=== PATIENT | female | born 1995 | race Caucasian/White ===

== ENCOUNTER 2021-07-02 18:46 | Emergency (ER) | payer BC ==
[~2021-07-02] VITALS: Ht 168 cm; Wt 85.0 kg
[~2021-07-02 18:46] MED LIST: CEFP500T4 PO; IBP800T PO; METH4TAB PO
[2021-07-02 19:27] LABS: BILIRUBIN,URINE NEGATIVE (NEGATIVE); CLARITY,URINE SL CLOUDY; COLOR,URINE YELLOW; GLUCOSE, URINE (UA) NEGATIVE (NEGATIVE); KETONES,URINE NEGATIVE (NEGATIVE); LEUKOCYTE ESTERASE ,URINE 2+ (NEGATIVE); NITRITE,URINE POSITIVE (NEGATIVE); PROTEIN,URINE NEGATIVE (NEGATIVE)
[2021-07-02] MEDS ORDERED: HYDROcodone/APAP 7.5 MG/325 MG (LORTAB, LORCET PLUS) TABLET PO STA (19:29)
--- NOTE | 2021-07-02 19:32 | ED Abdominal Pain ---
General Chief Complaint: OB < 20 WEEKS Stated Complaint: 8 WKS PREG, VAG BLEEDING, CRAMPS Source of Information: Patient Exam Limitations: No Limitations (LIANG MEJIA) History of Present Illness Date Seen by Provider: Jul 02, 2021 Time Seen by Provider: 19:30 Initial Comments Patient is a 25-year-old female presents ED with lower abdominal pain with vaginal bleeding. She states symptoms started on Friday with lower abdominal cramping. Started having red vaginal bleeding that was intermittent. Bleeding became heavier over the past few days. she Saw her LEASING PROFESSIONAL doctor Rajwinder and had lab work performed that showed concerning for miscarriage. She is unsure what type of lab work was drawn. She denies fever, chest pain, shortness of breath, cough. Patient is and currently 8 weeks . Last menstrual cycle May 02. Denies any urinary symptoms. (LIANG MEJIA) Allergies and Home Medications Allergies Coded Allergies: Penicillins (Verified Allergy, Mild, HIVES, 08/07/11) Patient Home Medication List Home Medication List Reviewed: Yes (LIANG MEJIA) Cephalexin (Cephalexin) 500 Mg Tablet, 500 MG PO BID Prescribed by: ARNOL MILLER on 07/02/212055 Hydrocodone/Acetaminophen (Hydrocodone-Acetamin 5-325 mg) 1 Each Tablet, 1 TAB PO Q4H PRN for PAIN-MODERATE (5-7) Prescribed by: ARNOL MILLER on 07/02/212055 Ibuprofen (Motrin) 800 Mg Tab, 800 MG PO Q8HR PRN Prescribed by: KARLOS OLMEDO on 03/24/121904 Review of Systems Review of Systems Constitutional: No chills, No diaphoresis, No fever, No malaise EENTM: No Blurred Vision, No Double Vision Respiratory: Denies Cough, Denies Orthopnea, Denies SOA With Exertion, Denies SOA at Rest Cardiovascular: Denies Chest Pain Gastrointestinal: Abdominal Pain; Denies Constipated, Denies Diarrhea, Denies Difficulty Swallowing, Denies Rectal Bleeding, Denies Vomiting Genitourinary: Denies Burning, Denies Drainage, Denies Frequency; Other (Vaginal bleeding) Musculoskeletal: No back pain, No joint pain, No muscle pain Skin: No change in color, No change in hair/nails Psychiatric/Neurological: Denies Anxiety, Denies Depressed (LIANG MEJIA) All Other Systems Reviewed Negative Unless Noted: Yes (LIANG MEJIA) Past Zamszpv-Knxpgm-Fxcbzs Hx Patient Social History Tobacco Use?: No Use of E-Cig and/or Vaping dev: No Substance use?: No Alcohol Use?: No Pt feels they are or have been: No (LIANG MEJIA) Immunizations Up To Date Influenza Vaccine Up-to-Date: No; Not Current First/Initial COVID19 Vaccinat: N/A (LIANG MEJIA) Physical Exam Vital Signs Vital Signs - First Documented 07/02/21 19:10 Temp 36.8 Pulse 99 Resp 18 B/P (MAP) 130/85 (100) Pulse Ox 97 O2 Delivery Room Air (KARLOS LOGAN MD) Vital Signs Capillary Refill : (ILANG MEJIA) Height/Weight/BMI Height: '" Weight: lbs. oz. kg; BMI Method:Stated General Appearance: WD/WN, no apparent distress HEENT: PERRL/EOMI, normal ENT inspection, TMs normal, pharynx normal Neck: non-tender, full range of motion, supple, normal inspection Respiratory: chest non-tender, lungs clear, normal breath sounds, no respiratory distress, no accessory muscle use Cardiovascular: regular rate, rhythm, no edema, no gallop, no JVD Gastrointestinal: normal bowel sounds, soft, no organomegaly, no pulsatile mass, tenderness (Lower abdominal tenderness on palpation peer) Genital/Rectal: other (Patient refused exam) Extremities: normal range of motion, non-tender, normal inspection Back: normal inspection, no CVA tenderness, no vertebral tenderness Pelvic: normal external exam, normal adnexa, no cerv. 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 nml as tested, no motor/sensory deficits, alert, normal mood/affect (LIANG MEJIA) Progress/Results/Core Measures Results/Orders Lab Results Laboratory Tests Test 07/02/21 19:20 07/02/21 19:42 Range/Units Urine Color YELLOW Urine Clarity SL CLOUDY Urine pH 6.0 5-9 Urine Specific [place] 1.020 1.016-1.022 Urine Protein NEGATIVE NEGATIVE Urine Glucose (UA) NEGATIVE NEGATIVE Urine Ketones NEGATIVE NEGATIVE Urine Nitrite POSITIVE H NEGATIVE Urine Bilirubin NEGATIVE NEGATIVE Urine Urobilinogen 0.2 < = 1.0 MG/DL Urine Leukocyte Esterase 2+ H NEGATIVE Urine RBC (Auto) 3+ H NEGATIVE Urine RBC >100 H /HPF Urine WBC 10-25 H /HPF Urine Crystals NONE /LPF Urine Bacteria FEW H /HPF Urine Casts NONE /LPF Urine Mucus NEGATIVE /LPF Urine Culture Indicated YES White Blood Count 10.3 4.3-11.0 10^3/uL Red Blood Count 4.44 3.80-5.11 10^6/uL Hemoglobin 13.2 11.5-16.0 g/dL Hematocrit 39 35-52 % Mean Corpuscular Volume 88 80-99 fL Mean Corpuscular Hemoglobin 30 25-34 pg Mean Corpuscular Hemoglobin Concent 34 32-36 g/dL Red Cell Distribution Width 12.3 10.0-14.5 % Platelet Count 204 130-400 10^3/uL Mean Platelet Volume 8.9 L 9.0-12.2 fL Immature Granulocyte % (Auto) 0 % Neutrophils (%) (Auto) 75 42-75 % Lymphocytes (%) (Auto) 15 12-44 % Monocytes (%) (Auto) 8 0-12 % Eosinophils (%) (Auto) 1 0-10 % Basophils (%) (Auto) 0 0-10 % Neutrophils # (Auto) 7.8 1.8-7.8 10^3/uL Lymphocytes # (Auto) 1.6 1.0-4.0 10^3/uL Monocytes # (Auto) 0.9 0.0-1.0 10^3/uL Eosinophils # (Auto) 0.1 0.0-0.3 10^3/uL Basophils # (Auto) 0.0 0.0-0.1 10^3/uL Immature Granulocyte # (Auto) 0.0 0.0-0.1 10^3/uL Sodium Level 140 135-145 MMOL/L Potassium Level 3.7 3.6-5.0 MMOL/L Chloride Level 107 98-107 MMOL/L Carbon Dioxide Level 22 21-32 MMOL/L Anion Gap 11 5-14 MMOL/L Blood Urea Nitrogen 10 7-18 MG/DL Creatinine 0.86 0.60-1.30 MG/DL Estimat Glomerular Filtration Rate 79 BUN/Creatinine Ratio 12 Glucose Level 109 H 70-105 MG/DL Calcium Level 9.2 8.5-10.1 MG/DL Corrected Calcium 9.2 8.5-10.1 MG/DL Total Bilirubin 0.2 0.1-1.0 MG/DL Aspartate Amino Transf (AST/SGOT) 11 5-34 U/L Alanine Aminotransferase (ALT/SGPT) 13 0-55 U/L Alkaline Phosphatase 60 40-136 U/L Total Protein 6.9 6.4-8.2 GM/DL Albumin 4.0 3.2-4.5 GM/DL Human Chorionic Gonadotropin, Quant 2244 H <5 MIU/ML (KARLOS LOGAN MD) My Orders Orders - KARLOS LOGAN MD Cbc With Automated Diff (07/02/21 18:52) Hcg,Quantitative (07/02/21 18:52) Ua Culture If Indicated (07/02/21 18:52) Abo Rh Type (07/02/21 18:52) Urine Culture (07/02/21 19:20) (KARLOS LOGAN MD) Medications Given in ED Current Medications Medications Dose Ordered Sig/Abraham Route Start Time Stop Time Status Last Admin Dose Admin Morphine Sulfate 4 mg ONCE ONCE IM 07/02/21 20:45 07/02/21 21:17 DC 07/02/21 21:01 4 MG (KARLOS LOGAN MD) Vital Signs/I&O 07/02/21 07/02/21 19:10 21:07 Temp 36.8 Pulse 99 92 Resp 18 16 B/P (MAP) 130/85 (100) 127/79 Pulse Ox 97 98 O2 Delivery Room Air Room Air (KARLOS LOGAN MD) Departure Communication (Admissions) Patient currently having a active miscarriage. Patient saw Dr. Purdy her [employer]ING PROFESSIONAL today and states her quant hCG has decreased and having a miscarriage. Patient . Unclear what type of lab work they performed today. Patient Rh+. Beta quant 2244. Refused pelvic exam. She states she has had a vaginal exam performed today. Positive UTI.. She states she had a previous ultrasound. Patient was given oral and IM pain medication with some improvement. Patient with normal hemoglobin. Normal white blood count. She does not appear in acute distress. Patient will be discharged at this time with follow-up with her LEASING PROFESSIONAL. Continue monitoring lab work. Follow-up with Dr. Purdy. Will discharge with pain medication. Patient did not meet criteria for pelvic ultrasound. (LIANG MEJIA) Impression Primary Impression: Vaginal bleeding Disposition: HOME, SELF-CARE Condition: Stable Departure-Patient Inst. Decision time for Depature: 20:54 (LIANG MEJIA) Referrals: [facility] [place] (PCP/Family) Primary Care Physician Patient Instructions: Bleeding In Early Scripts Hydrocodone/Acetaminophen (Hydrocodone-Acetamin 5-325 mg) 1 Each Tablet 1 TAB PO Q4H PRN for PAIN-MODERATE (5-7), #10 TAB Prov: LIANG MEJIA 07/02/21 Cephalexin (Cephalexin) 500 Mg Tablet 500 MG PO BID for 7 Days, #14 TAB Prov: LIANG MEJIA 07/02/21 ATTENDING PHYSICIAN NOTE: I was physically present as attending physician in the emergency department during the care of this patient. I placed initial orders after reviewing chief complaint, but I was not otherwise directly involved in the decision making or delivery of care for this patient. (KARLOS LOGAN MD) LIANG MEJIA Jul 02, 2021 19:32 KARLOS LOGAN MD Jul 03, 2021 07:47
[2021-07-02 19:51] LABS: RBC,URINE >100 /HPF
[2021-07-02 19:52] LABS: BASOPHILS % (AUTO) 0 % (0-10); EOSINOPHILS # (AUTO) 0.1 10^3/uL (0.0-0.3); EOSINOPHILS % (AUTO) 1 % (0-10); HEMATOCRIT 39 % (35-52); HEMOGLOBIN 13.2 g/dL (11.5-16.0); LYMPHOCYTES # (AUTO) 1.6 10^3/uL (1.0-4.0); LYMPHOCYTES % (AUTO) 15 % (12-44); MEAN CORPUSCULAR HEMOGLOBIN 30 pg (25-34); MEAN CORPUSCULAR HGB CONC 34 g/dL (32-36); MEAN CORPUSCULAR VOLUME 88 fL (80-99); MEAN PLATELET VOLUME 8.9 fL (9.0-12.2); MONOCYTES # (AUTO) 0.9 10^3/uL (0.0-1.0); MONOCYTES % (AUTO) 8 % (0-12); NEUTROPHILS # (AUTO) 7.8 10^3/uL (1.8-7.8); NEUTROPHILS % (AUTO) 75 % (42-75); PLATELET COUNT 204 10^3/uL (130-400); WHITE BLOOD COUNT 10.3 10^3/uL (4.3-11.0)
[2021-07-02 19:53] LABS: BACTERIA,URINE FEW /HPF
[2021-07-02 20:06] LABS: BILIRUBIN,TOTAL 0.2 MG/DL (0.1-1.0); CALCIUM 9.2 MG/DL (8.5-10.1); CREATININE SERUM 0.86 MG/DL (0.60-1.30); POTASSIUM 3.7 MMOL/L (3.6-5.0); TOTAL PROTEIN 6.9 GM/DL (6.4-8.2)
[2021-07-02] MEDS ORDERED: CEPHALEXIN 250 MG (KEFLEX) CAP PO STA (20:33)
[2021-07-02] MEDS ORDERED: morphine INJ 10 MG/ML 1ML (SYR OR VIAL) IM ONE (20:45)
[2021-07-02] MEDS ORDERED: CEPHALEXIN 250 MG (KEFLEX) CAP PO ONE (20:54)
[2021-07-02] MEDS ORDERED: morphine INJ 10 MG/ML 1ML (SYR OR VIAL) ONE (20:55)
[2021-07-02] MEDS ORDERED: ACHD5005 PO (20:56)
[2021-07-02] MEDS ORDERED: CEPH500T PO (20:56)
[2021-07-02 21:07] VITALS: BP 127/79
== END 2021-07-02 21:17 | disposition home or self-care (01) ==
LOC: EDUNIT# 18:46 → ER 18:50
DX: O03.9 Complete or unspecified spontaneous abortion without complication (principal); N39.0 Urinary tract infection, site not specified; Z67.90 Unspecified blood type, Rh positive; Z88.0 Allergy status to penicillin
CPT/HCPCS: 36415; 80053; 81000; 84702; 85025; 86900; 86901; 87077; 87088; 87186

== ENCOUNTER 2022-04-26 20:32 | Emergency (ER) | payer BC ==
[~2022-04-26] VITALS: Ht 167.7 cm; Wt 87.5 kg
[~2022-04-26 20:32] MED LIST changes: +ACHD5005 PO; +CEPH500T PO
[2022-04-26 20:57] LABS: BASOPHILS % (AUTO) 0 % (0-10); EOSINOPHILS % (AUTO) 0 % (0-10); HEMATOCRIT 33 % (35-52); HEMOGLOBIN 11.2 g/dL (11.5-16.0); LYMPHOCYTES # (AUTO) 1.6 10^3/uL (1.0-4.0); LYMPHOCYTES % (AUTO) 18 % (12-44); MEAN CORPUSCULAR HEMOGLOBIN 31 pg (25-34); MEAN CORPUSCULAR HGB CONC 34 g/dL (32-36); MEAN CORPUSCULAR VOLUME 91 fL (80-99); MEAN PLATELET VOLUME 9.4 fL (9.0-12.2); MONOCYTES # (AUTO) 0.7 10^3/uL (0.0-1.0); MONOCYTES % (AUTO) 8 % (0-12); NEUTROPHILS # (AUTO) 6.4 10^3/uL (1.8-7.8); NEUTROPHILS % (AUTO) 73 % (42-75); PLATELET COUNT 178 10^3/uL (130-400); WHITE BLOOD COUNT 8.8 10^3/uL (4.3-11.0)
[2022-04-26 21:06] LABS: BILIRUBIN,URINE NEGATIVE (NEGATIVE); CLARITY,URINE CLOUDY; COLOR,URINE YELLOW; GLUCOSE, URINE (UA) NEGATIVE (NEGATIVE); KETONES,URINE NEGATIVE (NEGATIVE); LEUKOCYTE ESTERASE ,URINE 2+ (NEGATIVE); NITRITE,URINE NEGATIVE (NEGATIVE); PROTEIN,URINE NEGATIVE (NEGATIVE)
[2022-04-26 21:16] LABS: ALBUMIN 2.9 GM/DL (3.2-4.5); BILIRUBIN,TOTAL 0.2 MG/DL (0.1-1.0); CALCIUM 9.1 MG/DL (8.5-10.1); CREATININE SERUM 0.75 MG/DL (0.60-1.30); MAGNESIUM 1.6 MG/DL (1.6-2.4); POTASSIUM 3.7 MMOL/L (3.6-5.0); TOTAL PROTEIN 6.3 GM/DL (6.4-8.2)
[2022-04-26 21:28] LABS: BACTERIA,URINE LARGE /HPF
[2022-04-26] MEDS ORDERED: CEFDINIR 300 MG (OMNICEF) CAP PO ONE (21:45)
[2022-04-26] MEDS ORDERED: CEFD300C3 PO (21:50)
--- NOTE | 2022-04-26 21:50 | ED General ---
General Chief Complaint: OB > 20 WEEKS Stated Complaint: PAIN/SWELLING IN LEGS,38 WKS Nursing Triage Note: PT AMB TO ED BY POV WITH C/O BILAT LEG PAIN/ SWELLING SINCE LAST NIGHT. PT IS 37 WK 5 DAYS . Allergies and Home Medications Allergies Coded Allergies: Penicillins (Verified Allergy, Mild, HIVES, 08/07/11) Patient Home Medication List Cephalexin (Cephalexin) 500 Mg Tablet, 500 MG PO BID Prescribed by: ARNOL MILLER on 07/02/212055 Hydrocodone/Acetaminophen (Hydrocodone-Acetamin 5-325 mg) 1 Each Tablet, 1 TAB PO Q4H PRN for PAIN-MODERATE (5-7) Prescribed by: ARNOL MILLER on 07/02/212055 Ibuprofen (Motrin) 800 Mg Tab, 800 MG PO Q8HR PRN Prescribed by: KARLOS OLMEDO on 03/24/121904 Review of Systems Review of Systems Expected Date of Delivery: May 12, 2022 Past Ggzauft-Ogpyyh-Gwgiuu Hx Patient Social History Tobacco Use?: No Use of E-Cig and/or Vaping dev: No Substance use?: No Alcohol Use?: No Pt feels they are or have been: No Immunizations Up To Date Influenza Vaccine Up-to-Date: No; Not Current First/Initial COVID19 Vaccinat: N/A Past Medical History Surgery/Hospitalization HX: ANEMIA, DEPRESSION Expected Date of Delivery: May 12, 2022 Physical Exam Vital Signs Vital Signs - First Documented 04/26/22 20:35 Temp 36.5 Pulse 77 Resp 18 B/P (MAP) 133/91 (105) Pulse Ox 98 O2 Delivery Room Air Capillary Refill : Less Than 3 Seconds Height, Weight, BMI Height: '" Weight: lbs. oz. kg; 31.00 BMI Method:Stated Progress/Results/Core Measures Suspected Sepsis SIRS Temperature: Pulse: 77 Respiratory Rate: 18 Laboratory Tests 04/26/22 20:47: White Blood Count 8.8 Blood Pressure 133 /91 Mean: 105 Laboratory Tests 04/26/22 20:47: Creatinine 0.75, Platelet Count 178, Total Bilirubin 0.2 Results/Orders Lab Results Laboratory Tests Test 04/26/22 20:47 04/26/22 21:01 Range/Units White Blood Count 8.8 4.3-11.0 10^3/uL Red Blood Count 3.62 L 3.80-5.11 10^6/uL Hemoglobin 11.2 L 11.5-16.0 g/dL Hematocrit 33 L 35-52 % Mean Corpuscular Volume 91 80-99 fL Mean Corpuscular Hemoglobin 31 25-34 pg Mean Corpuscular Hemoglobin Concent 34 32-36 g/dL Red Cell Distribution Width 13.6 10.0-14.5 % Platelet Count 178 130-400 10^3/uL Mean Platelet Volume 9.4 9.0-12.2 fL Immature Granulocyte % (Auto) 1 % Neutrophils (%) (Auto) 73 42-75 % Lymphocytes (%) (Auto) 18 12-44 % Monocytes (%) (Auto) 8 0-12 % Eosinophils (%) (Auto) 0 0-10 % Basophils (%) (Auto) 0 0-10 % Neutrophils # (Auto) 6.4 1.8-7.8 10^3/uL Lymphocytes # (Auto) 1.6 1.0-4.0 10^3/uL Monocytes # (Auto) 0.7 0.0-1.0 10^3/uL Eosinophils # (Auto) 0.0 0.0-0.3 10^3/uL Basophils # (Auto) 0.0 0.0-0.1 10^3/uL Immature Granulocyte # (Auto) 0.1 0.0-0.1 10^3/uL Sodium Level 138 135-145 MMOL/L Potassium Level 3.7 3.6-5.0 MMOL/L Chloride Level 108 H 98-107 MMOL/L Carbon Dioxide Level 18 L 21-32 MMOL/L Anion Gap 12 5-14 MMOL/L Blood Urea Nitrogen 11 7-18 MG/DL Creatinine 0.75 0.60-1.30 MG/DL Estimat Glomerular Filtration Rate 111 BUN/Creatinine Ratio 15 Glucose Level 99 70-105 MG/DL Calcium Level 9.1 8.5-10.1 MG/DL Corrected Calcium 10.0 8.5-10.1 MG/DL Magnesium Level 1.6 1.6-2.4 MG/DL Total Bilirubin 0.2 0.1-1.0 MG/DL Aspartate Amino Transf (AST/SGOT) 17 5-34 U/L Alanine Aminotransferase (ALT/SGPT) 14 0-55 U/L Alkaline Phosphatase 155 H 40-136 U/L B-Type Natriuretic Peptide 52.3 <100.0 PG/ML Total Protein 6.3 L 6.4-8.2 GM/DL Albumin 2.9 L 3.2-4.5 GM/DL Urine Color YELLOW Urine Clarity CLOUDY Urine pH 6.0 5-9 Urine Specific [place] 1.025 H 1.016-1.022 Urine Protein 33 H 6-12 MG/DL Urine Glucose (UA) NEGATIVE NEGATIVE Urine Ketones NEGATIVE NEGATIVE Urine Nitrite NEGATIVE NEGATIVE Urine Bilirubin NEGATIVE NEGATIVE Urine Urobilinogen 0.2 < = 1.0 MG/DL Urine Leukocyte Esterase 2+ H NEGATIVE Urine RBC (Auto) NEGATIVE NEGATIVE Urine RBC NONE /HPF Urine WBC 10-25 H /HPF Urine Squamous Epithelial Cells 2-5 /HPF Urine Crystals NONE /LPF Urine Bacteria LARGE H /HPF Urine Casts NONE /LPF Urine Mucus NEGATIVE /LPF Urine Culture Indicated YES Urine Creatinine 103 30-125 MG/DL Urine Protein/Creatinine Ratio 0.32 My Orders Orders - JOSETTE KRAUSE DO Ed Iv/Invasive Line Start (04/26/22 20:38) Monitor-Rhythm Ecg Trace Only (04/26/22 20:38) Bnp Mayuri (04/26/22 20:38) Cbc With Automated Diff (04/26/22 20:38) Comprehensive Metabolic Panel (04/26/22 20:38) Magnesium (04/26/22 20:38) Ekg Tracing (04/26/22 20:38) Ua Culture If Indicated (04/26/22 20:38) Urine [place] Prot Creat W/Ratio (04/26/22 20:41) Heart Tones (04/26/22 20:41) Urine Culture (04/26/22 21:01) Vital Signs/I&O 04/26/22 20:35 Temp 36.5 Pulse 77 Resp 18 B/P (MAP) 133/91 (105) Pulse Ox 98 O2 Delivery Room Air Capillary Refill : Less Than 3 Seconds Blood Pressure Mean: 105 Departure Impression Primary Impression: 38 weeks gestation of Additional Impressions: Edema of both lower legs UTI (urinary tract infection) in in third trimester Disposition: 01 HOME, SELF-CARE Condition: Stable Departure-Patient Inst. Decision time for Depature: 21:45 Referrals: DMITRY WILLIAM MD (PCP/Family) Primary Care Physician Patient Instructions: Dependent Edema (DC), Urinary Tract Infections in Add. Discharge Instructions: HOME, REST ELEVATE LEGS MUCH POSSIBLE LOW SODIUM DIET--LESS THAN 2 GRAMS/2000 MG A DAY TYLENOL NEEDED FOR PAIN INCREASE YOUR WATER INTAKE FOLLOW UP WITH DR. WILLIAM ON FRIDAY--CALL IN THE MORNING TO SCHEDULE APPOINTMENT RETURN TO ER IF SYMPTOMS WORSEN All discharge instructions reviewed with patient and/or family. Voiced understanding. Scripts Cefdinir (Cefdinir) 300 Mg Capsule 300 MG PO BID, #20 CAP Prov: JOSETTE KRAUSE DO 04/26/22 JOSETTE KRAUSE DO Apr 26, 2022 21:50
[2022-04-26 22:01] VITALS: BP 114/65
== END 2022-04-26 22:00 | disposition home or self-care (01) ==
LOC: EDUNIT# 20:32 → ER 20:33
DX: O26.893 Other specified pregnancy related conditions, third trimester (principal); O23.43 Unspecified infection of urinary tract in pregnancy, third trimester; R60.0 Localized edema; N39.0 Urinary tract infection, site not specified; Z28.310 Unvaccinated for COVID-19; Z88.0 Allergy status to penicillin; Z3A.38 38 weeks gestation of pregnancy
CPT/HCPCS: 36415; 80053; 81000; 82570; 83735; 83880; 84156; 85025; 87077; 87088; 87186; 93005; 93041

== ENCOUNTER 2022-05-10 06:30 | Inpatient (IN) | payer BC ==
[~2022-05-10] VITALS: Ht 167.7 cm; Wt 92.1 kg
[~2022-05-10 06:30] MED LIST changes: +CEFD300C3 PO
[2022-05-14 19:20] VITALS: BP 140/84
[2022-05-14] MEDS ORDERED: LACTATED RINGERS 1,000 ML IV SCH (19:30)
[2022-05-14] MEDS ORDERED: TERBUTALINE INJ 1 MG/ML (BRETHINE) AMP SC PRN (19:30)
[2022-05-14] MEDS ORDERED: MINERAL OIL 30 ML UDC TOP PRN (19:30)
[2022-05-14 19:35] VITALS: BP 140/84
[2022-05-14 20:14] LABS: BASOPHILS % (AUTO) 0 % (0-10); EOSINOPHILS % (AUTO) 0 % (0-10); HEMATOCRIT 35 % (35-52); HEMOGLOBIN 12.2 g/dL (11.5-16.0); LYMPHOCYTES # (AUTO) 1.6 10^3/uL (1.0-4.0); LYMPHOCYTES % (AUTO) 15 % (12-44); MEAN CORPUSCULAR HEMOGLOBIN 31 pg (25-34); MEAN CORPUSCULAR HGB CONC 35 g/dL (32-36); MEAN CORPUSCULAR VOLUME 88 fL (80-99); MEAN PLATELET VOLUME 9.3 fL (9.0-12.2); MONOCYTES # (AUTO) 0.8 10^3/uL (0.0-1.0); MONOCYTES % (AUTO) 8 % (0-12); NEUTROPHILS % (AUTO) 76 % (42-75); PLATELET COUNT 180 10^3/uL (130-400); WHITE BLOOD COUNT 10.5 10^3/uL (4.3-11.0)
[2022-05-14 20:15] LABS: BILIRUBIN,URINE NEGATIVE (NEGATIVE); CLARITY,URINE CLEAR; COLOR,URINE YELLOW; GLUCOSE, URINE (UA) NEGATIVE (NEGATIVE); KETONES,URINE NEGATIVE (NEGATIVE); LEUKOCYTE ESTERASE ,URINE 1+ (NEGATIVE); NITRITE,URINE POSITIVE (NEGATIVE); PROTEIN,URINE NEGATIVE (NEGATIVE)
[2022-05-14 20:22] LABS: BACTERIA,URINE LARGE /HPF; SQUAMOUS EPITHELIAL CELL,UR 0-2 /HPF
[2022-05-14 21:10] VITALS: BP 127/81
[2022-05-14] MEDS ORDERED: CATHETER FLUSH 10 ML SYR IV SCH (22:00)
[2022-05-14 23:45] VITALS: BP 137/88
[2022-05-15] VITALS (34 sets, daily range): BP systolic 105–175; BP diastolic 60–106
[2022-05-15] MEDS: D5 LR IV SOLUTION 1,000 ML IV SCH ×2 (02:31→11:14)
[2022-05-15] MEDS ORDERED: OXYTOCIN PRE-MIX DRIP 500 ML IV SCH (06:00)
[2022-05-15] MEDS ORDERED: DOCU100C37 PO (07:30)
[2022-05-15] MEDS ORDERED: FERR325T18 PO (07:30)
[2022-05-15] MEDS ORDERED: PNV11TAB5 PO (07:30)
[2022-05-15] MEDS ORDERED: CITA20TA12 PO (07:30)
--- NOTE | 2022-05-15 09:38 | History & Physical-OB ---
OB - Chief Complaint & HPI Date/Time Date of Admission: Date of Admission: May 14, 2022 at 18:03 Date seen by a Provider: May 15, 2022 Time Seen by a Provider: 09:00 Chief Complaint/History OB-Reason for Admission/Chief: Induction of Labor Hx : 3 Hx Para: 1 Expected Date of Delivery: May 12, 2022 Gestational Age in Weeks: 40 Gestational Age in Days: 3 Indication for induction: post dates History of Labs O+, Ab neg, Rub Imm HIV/RPR/HepB/C NR Normal 1 hr GTT GBS neg Allergies and Home Medications Allergies Coded Allergies: Penicillins (Verified Allergy, Mild, HIVES, pt has rec Rocephin in the past, 05/15/22) Patient Home Medication List Home Medication List Reviewed: Yes Citalopram Hydrobromide (Celexa) 20 Mg Tablet, 20 MG PO DAILY, (Reported) Entered as Reported by: RICHARD LOPEZ on 05/15/22729 Last Action: New Order Docusate Sodium (Docusate Sodium) 100 Mg Capsule, 100 MG PO DAILY, (Reported) Entered as Reported by: RICHARD LOPEZ on 05/15/22729 Last Action: New Order Ferrous Sulfate (Ferrous Sulfate) 325 Mg (65 Mg Iron) Tablet, 325 MG PO DAILY, (Reported) Entered as Reported by: RICHARD LOPEZ on 05/15/22729 Last Action: New Order Glk477/FA/Omega3/Dha/Fish Oil ( Gummies) 400 Mcg-32.5 Mg (25 Mg-7.5 Mg) Tab.chew, 1 EACH PO DAILY, (Reported) Entered as Reported by: RICHARD LOPEZ on 05/15/22729 Last Action: New Order OB - History Hx of Present Care: Yes Ultrasounds: Normal mid trimester US Obstetrical Complications: None Medical Complications: None Obstetrical History Hx : 3 Hx Para: 1 Hx # Term Pregnancies: 1 Number of Living Children: 1 Hx Total # of Abortions (Spona: 1 Patient Past Medical History None Social History/Family History Alcohol Use: Denies Use Recreational Drug Use: No Smoking Cessation: Never smoker Immunizations Influenza Vaccine Up-to-Date: No; Not Current First/Initial COVID19 Vaccine: N/A Tetanus Booster (TDap): Less than 5yrs Rubella: immune RPR/VDRL: Negative GBS Status: Negative HBsAG: Negative OB - Admission Exam Physical Exam Vitals: Vital Signs 05/14/22 05/14/22 05/15/22 05/15/22 19:20 19:35 09:00 09:15 Temp 36.2 Pulse 67 Resp 20 B/P (MAP) 141/83 (102) Pulse Ox 98 O2 Delivery Room Air HEENT: NCAT Heart: Rhythm Normal Lungs: Clear Abdomen: Gravid Cervical Dilatation: 4cm Effacement: 100% Station: -2 Membranes: Intact Heart Rate: 130's Accelerations: Accelerations Present Decelerations: No Decelerations Wood Router Hand Variability: Average (6-25) Contractions on Admission: < 5 Minutes Apart Intensity: Firm Labs Laboratory Tests Test 05/14/22 19:50 Range/Units White Blood Count 10.5 4.3-11.0 10^3/uL Red Blood Count 3.98 3.80-5.11 10^6/uL Hemoglobin 12.2 11.5-16.0 g/dL Hematocrit 35 35-52 % Mean Corpuscular Volume 88 80-99 fL Mean Corpuscular Hemoglobin 31 25-34 pg Mean Corpuscular Hemoglobin Concent 35 32-36 g/dL Red Cell Distribution Width 13.4 10.0-14.5 % Platelet Count 180 130-400 10^3/uL Mean Platelet Volume 9.3 9.0-12.2 fL Immature Granulocyte % (Auto) 1 % Neutrophils (%) (Auto) 76 H 42-75 % Lymphocytes (%) (Auto) 15 12-44 % Monocytes (%) (Auto) 8 0-12 % Eosinophils (%) (Auto) 0 0-10 % Basophils (%) (Auto) 0 0-10 % Neutrophils # (Auto) 8.0 H 1.8-7.8 10^3/uL Lymphocytes # (Auto) 1.6 1.0-4.0 10^3/uL Monocytes # (Auto) 0.8 0.0-1.0 10^3/uL Eosinophils # (Auto) 0.0 0.0-0.3 10^3/uL Basophils # (Auto) 0.0 0.0-0.1 10^3/uL Immature Granulocyte # (Auto) 0.1 0.0-0.1 10^3/uL Urine Color YELLOW Urine Clarity CLEAR Urine pH 6.0 5-9 Urine Specific [place] 1.015 L 1.016-1.022 Urine Protein NEGATIVE NEGATIVE Urine Glucose (UA) NEGATIVE NEGATIVE Urine Ketones NEGATIVE NEGATIVE Urine Nitrite POSITIVE H NEGATIVE Urine Bilirubin NEGATIVE NEGATIVE Urine Urobilinogen 0.2 < = 1.0 MG/DL Urine Leukocyte Esterase 1+ H NEGATIVE Urine RBC (Auto) NEGATIVE NEGATIVE Urine RBC NONE /HPF Urine WBC 10-25 H /HPF Urine Squamous Epithelial Cells 0-2 /HPF Urine Renal Epithelial Cells NONE /HPF Urine Crystals NONE /LPF Urine Bacteria LARGE H /HPF Urine Casts NONE /LPF Urine Mucus NEGATIVE /LPF Urine Culture Indicated YES OB - Assessment/Plan/Diagnosis Assessment Assessment: active labor Admission Dx Third Trimester 40 week gestation Admission Status: Inpatient Order (span 2 midnights) Reason for Inpatient Admission: Labor Plan Other Plan 26 yo @ 40.2 wga here for IOL that was found to be in active labor Plan - Expectant management - Wishes to have natural delivery - GBS neg DMITRY WILLIAM MD May 15, 2022 09:38
[2022-05-15] MEDS: cefTRIAXone 1 GM PRE-MIX 50 ML IV SCH (09:55)
[2022-05-15] MEDS ORDERED: LIDOCAINE 1% INJ 20 ML VIAL ONE (12:21)
[2022-05-15] MEDS: OXYTOCIN PRE-MIX DRIP 500 ML IV SCH ×2 (12:45→13:22)
[2022-05-15] MEDS ORDERED: MEASLES,MUMPS,RUBELLA 1 EA INJ SQ ONE (13:00)
[2022-05-15] MEDS ORDERED: TETANUS,DIPTH,PERTUSS P/F (BOOSTRIX) 0.5 ML VIAL IM ONE (13:00)
[2022-05-15] MEDS ORDERED: BENZOCAINE/MENTHOL (DERMOPLAST) 56 ML CAN TP PRN (13:00)
[2022-05-15] MEDS: ACETAMINOPHEN 500 MG TAB (TYLENOL) PO SCH ×2 (13:18→18:30)
[2022-05-15] MEDS: IBUPROFEN 600 MG (MOTRIN) TAB PO SCH ×2 (13:18→18:30)
[2022-05-15] MEDS ORDERED: CATHETER FLUSH 10 ML SYR IV SCH (14:00)
--- NOTE | 2022-05-15 14:22 | OB Labor & Delivery Record ---
Vag Delivery Note Vag Delivery Note Date of Delivery: 05/15/22 Preoperative Diagnosis: Judy Corado is a (26 /Para / ,Gestational Age (wks)40.3 here for IOL that was found to be in active labor upon arrival Postoperative Diagnosis: Same Surgeon: DMITRY WILLIAM MD Family Life Counselor: None Anesthesia: Natural Delivery Type: @ 1219 Findings: Viable female , apgars 9/9, weight 8#12, 3937 grams Lacerations: 2nd degree perineal Intact placenta with 3 vessel cord delivered @ 1222 Cytotec 800 mcg placed for hemorrhage prophylaxis True knot present Nuchal cord x1 Estimated Blood Loss: 250 ml Complications: None Condition: Stable Description of Procedure: The patient is a 26 year old female who presented in active labor. She was admitted and informed consent was obtained. Her labor course was remarkable for pitocin augmentation. She progressed to complete dilatation and began to push. She was then set up for delivery. The 's head was delivered atraumatically in the ADILSON position. The shoulders and remainder of the 's body were then delivered without difficulty. Vigorous at delivery. Upon delivery, the head was held below the level of the perineum and the mouth and nares were bulb suctioned. The cord was doubly clamped and cut by FOB after 2 min delay and the was attended to by pediatric staff on maternal abdomen. An intact placenta with 3-vessel cord delivered via [place] and there was found to be minimal bleeding @ 1222.~ Vigorous fundal massage was performed and the fundus was found to be firm. IV oxytocin was given. Examination of the vagina and perineum revealed a 2nd degree laceration repaired in the usual fashion with 3-0 vicryl suture. Following the repair, sponge, instrument and needle counts were correct. Mom and baby were both in stable condition in the labor suite. Vitals - Labs Vital Signs - I&O Vital Signs Date Time Temp Pulse Resp B/P (MAP) Pulse Ox O2 Delivery O2 Flow Rate FiO2 05/15/22 13:01 99 155/91 (112) 05/15/22 12:45 102 123/71 (88) 05/15/22 12:30 89 141/73 (95) 05/15/22 12:15 150 175/81 (112) 05/15/22 12:00 101 155/106 (122) 05/15/22 11:45 84 135/101 (112) 05/15/22 11:30 71 131/89 (103) 05/15/22 11:15 36.3 78 135/88 (104) 05/15/22 11:00 82 133/90 (104) 05/15/22 10:45 71 139/85 (103) 05/15/22 10:30 67 120/78 (92) 05/15/22 10:15 73 124/85 (98) 05/15/22 10:00 75 122/81 (95) 05/15/22 09:45 79 123/81 (95) 05/15/22 09:30 78 127/81 (96) 05/15/22 09:15 67 141/83 (102) 05/15/22 09:00 36.2 77 20 117/75 (89) 05/15/22 08:45 64 122/78 (93) 05/15/22 08:30 82 127/80 (96) 05/15/22 08:15 59 117/74 (88) 05/15/22 08:00 71 106/68 (81) 05/15/22 07:45 65 108/62 (77) 05/15/22 07:30 71 116/64 (81) 05/15/22 07:15 71 106/65 (79) 05/15/22 07:00 65 18 105/64 (78) 05/15/22 06:45 64 18 122/77 (92) 05/15/22 06:30 77 18 152/89 (110) 05/15/22 06:15 36.4 88 18 139/91 (107) 05/15/22 06:00 05/15/22 05:00 05/15/22 04:00 05/15/22 03:00 05/15/22 01:55 05/14/22 23:45 69 18 137/88 (104) 05/14/22 21:10 73 18 127/81 (96) 05/14/22 19:35 36.6 91 18 140/84 (102) 98 05/14/22 19:20 36.6 91 18 98 Room Air I & O 05/15/22 06:59 Intake Total 1000 ml Balance 1000 ml Labs Laboratory Tests 05/14/22 19:50: White Blood Count 10.5, Red Blood Count 3.98, Hemoglobin 12.2, Hematocrit 35, Mean Corpuscular Volume 88, Mean Corpuscular Hemoglobin 31, Mean Corpuscular Hemoglobin Concent 35, Red Cell Distribution Width 13.4, Platelet Count 180, Mean Platelet Volume 9.3, Immature Granulocyte % (Auto) 1, Neutrophils (%) (Auto) 76H, Lymphocytes (%) (Auto) 15, Monocytes (%) (Auto) 8, Eosinophils (%) (Auto) 0, Basophils (%) (Auto) 0, Neutrophils # (Auto) 8.0H, Lymphocytes # (Auto) 1.6, Monocytes # (Auto) 0.8, Eosinophils # (Auto) 0.0, Basophils # (Auto) 0.0, Immature Granulocyte # (Auto) 0.1, Urine Color YELLOW, Urine Clarity CLEAR, Urine pH 6.0, Urine Specific [place] 1.015L, Urine Protein NEGATIVE, Urine Glucose (UA) NEGATIVE, Urine Ketones NEGATIVE, Urine Nitrite POSITIVEH, Urine Bilirubin NEGATIVE, Urine Urobilinogen 0.2, Urine Leukocyte Esterase 1+H, Urine RBC (Auto) NEGATIVE, Urine RBC NONE, Urine WBC 10-25H, Urine Squamous Epithelial Cells 0-2, Urine Renal Epithelial Cells NONE, Urine Crystals NONE, Urine Bacteria LARGEH, Urine Casts NONE, Urine Mucus NEGATIVE, Urine Culture Indicated YES Microbiology 05/14/22 Urine Culture - Preliminary, Resulted Gram Negative DMITRY Soriano MD May 15, 2022 14:22
[2022-05-15] MEDS: WITCH HAZEL(TUCKS) 40 EA JAR TOP PRN (15:06)
[2022-05-15] MEDS ORDERED: DOCUSATE SODIUM 100 MG (COLACE) CAP PO SCH (21:00)
[2022-05-16] MEDS: IBUPROFEN 600 MG (MOTRIN) TAB PO SCH ×2 (00:11→06:02)
[2022-05-16] MEDS: ACETAMINOPHEN 500 MG TAB (TYLENOL) PO SCH ×2 (00:11→06:03)
[2022-05-16 04:30] VITALS: BP 134/75
[2022-05-16 06:21] LABS: BASOPHILS % (AUTO) 0 % (0-10); EOSINOPHILS % (AUTO) 0 % (0-10); HEMATOCRIT 29 % (35-52); HEMOGLOBIN 9.5 g/dL (11.5-16.0); LYMPHOCYTES # (AUTO) 1.5 10^3/uL (1.0-4.0); LYMPHOCYTES % (AUTO) 16 % (12-44); MEAN CORPUSCULAR HEMOGLOBIN 31 pg (25-34); MEAN CORPUSCULAR HGB CONC 33 g/dL (32-36); MEAN CORPUSCULAR VOLUME 92 fL (80-99); MEAN PLATELET VOLUME 9.2 fL (9.0-12.2); MONOCYTES # (AUTO) 0.7 10^3/uL (0.0-1.0); MONOCYTES % (AUTO) 7 % (0-12); NEUTROPHILS # (AUTO) 7.1 10^3/uL (1.8-7.8); NEUTROPHILS % (AUTO) 76 % (42-75); PLATELET COUNT 160 10^3/uL (130-400); WHITE BLOOD COUNT 9.4 10^3/uL (4.3-11.0)
[2022-05-16 10:03] VITALS: BP 120/69
[2022-05-16] MEDS: cefTRIAXone 1 GM PRE-MIX 50 ML IV SCH (10:03)
[2022-05-16] MEDS: WITCH HAZEL(TUCKS) 40 EA JAR TOP PRN (10:14)
--- NOTE | 2022-05-16 12:38 | Discharge Summary ---
Diagnosis/Chief Complaint Date of Admission May 14, 2022 at 18:03 Date of Discharge 05/16/22 Admission Diagnosis Admission Diagnosis Third Trimester 40 weeks gestation Discharge Diagnosis Uncomplicated 40 completed weeks gestation Anemia of acute blood loss Discharge Summary-Simple/Stand Procedures Uncomplicated Discharge Physical Examination Allergies: Coded Allergies: Penicillins (Verified Allergy, Mild, HIVES, pt has rec Rocephin in the past, 05/15/22) Vitals & I&Os Vital Sign - Last 12Hours Date Time Temp Pulse Resp B/P (MAP) Pulse Ox O2 Delivery O2 Flow Rate FiO2 05/16/22 10:03 36.3 110 18 120/69 (86) 98 Room Air Intake and Output 05/16/22 00:00 Intake Total 2300 ml Balance 2300 ml General Appearance: Alert, Oriented X3, No Acute Distress HEENT: Mucous Memb Moist/Atlas Respiratory: Clear to Auscultation, Normal Air Movement Cardiovascular: Regular Rate, No Murmurs Abdominal: Normal Bowel Sounds, Soft, No Tenderness, Other (Fundus firm and below umbilicus) Extremities: No Edema, No Tenderness/Swelling Skin: No Rashes Neuro: Normal Speech, Strength at 5/5 X4 Ext, Sensation Intact, Cranial Nerves 3-12 NL Psych/Mental Status: Mental Status NL, Mood NL Hospital Course See final discharge diagnosis. Discussion & Recommendations Uncomplicated of female @ 40 weeks gestation. 2nd degree perineal laceration Discharge Condition at discharge stable Instructions to patient/family Please see electronic discharge instructions given to patient. Discharge Medications Reviewed and agree with Discharge Medication list on patient's Discharge Instruction sheet DMITRY WILLIAM MD May 16, 2022 12:37
[2022-05-16] MEDS ORDERED: CEFD300C3 PO (12:40)
[2022-05-16] MEDS ORDERED: DOCU100C37 PO (12:40)
[2022-05-16] MEDS ORDERED: IBUP-844 PO (12:40)
--- NOTE | 2022-05-16 12:41 | Discharge Summary ---
Discharge Inst-[facility] Reconcile Patient Problems Problems Reviewed?: Yes Depart Medications New, Converted or Re-Newed RX: Transmitted to Pharmacy New Medications: Cefdinir (Cefdinir) 300 Mg Capsule 300 MG PO BID, #2 CAP Docusate Sodium (Docusate Sodium) 100 Mg Capsule 100 MG PO BID, #14 CAP Ibuprofen (Ibu) 600 Mg Tablet 600 MG PO Q6H, #60 TAB Continued Medications: Citalopram Hydrobromide (Celexa) 20 Mg Tablet 20 MG PO DAILY, TAB Ferrous Sulfate (Ferrous Sulfate) 325 Mg (65 Mg Iron) Tablet 325 MG PO DAILY, TAB [id number]/Omega3/Dha/Fish Oil ( Gummies) 400 Mcg-32.5 Mg (25 Mg-7.5 Mg) Tab.chew 1 EACH PO DAILY, TAB Discontinued Medications: Docusate Sodium (Docusate Sodium) 100 Mg Capsule 100 MG PO DAILY, CAP Follow Up/Instructions Goal/Follow Up: 6 week post visit with Rajwinder [place] Activity: Activity as Tolerated Driving Instructions: You May Drive NO SMOKING: NO SMOKING Nothing Inside Vagina: No Douching, No [place], No Tampons Diet Discharge Diet: No Restrictions Symptoms to Report to : Bleeding Excessive, Pain Increased, Fever Over 101 Degrees F DMITRY WILLIAM MD May 16, 2022 12:41
== END 2022-05-16 14:30 | disposition home or self-care (01) | DRG 806 ==
LOC: LDRP 05-14 18:03
PROVIDERS: ADMIT Family Medicine; ATTEND Family Medicine
PROC: 10E0XZZ Delivery of Products of Conception, External Approach (ICD-10-PCS; principal; 2022-05-15)
PROC: 0KQM0ZZ Repair Perineum Muscle, Open Approach (ICD-10-PCS; 2022-05-15)
DX: O48.0 Post-term pregnancy (principal); D62 Acute posthemorrhagic anemia; Z37.0 Single live birth; Z3A.40 40 weeks gestation of pregnancy; O69.81X0 Labor and delivery complicated by cord around neck, without compression, not applicable or unspecified; O70.1 Second degree perineal laceration during delivery; O90.81 Anemia of the puerperium
CPT/HCPCS: 36415; 81000; 85025; 86780; 86850; 86900; 86901; 87077; 87088; 87186